=== PATIENT | female | born 1945 | race Caucasian/White ===

== ENCOUNTER 2025-02-05 12:22 | Outpatient (AMB) | payer MEDICARE, SELFPAY ==
--- NOTE | 2025-02-05 12:29 | MHC.OFFVIS ---
Intake Visit Reasons: 6 month MCI Accompanied by: Spouse Allergies No Known Allergies Allergy (Verified 02/05/25 12:29) Medication List - Last Reconciled 02/05/25 by Skye Etienne CNP amlodipine 2.5 mg PO DAILY donepezil 5 mg PO DAILY lisinopril 20 mg PO DAILY memantine 10 mg PO BID HPI Comments Details: She was doing okay. Memory was about the same, may be declining some. Unsteady and balance was off, walking with walker. She had minor fall last week without injury and needed help getting up. She needed some help with dressing. No issues with bathing. Able to feed herself. Mood was okay. She was napping during the day, but sleep was okay at night. She was still drinking alcohol some. Balance is poor. Has had unsteadiness on walking since 2019. She has mild cognitive impairment diagnosed on neuropsych testing in 05/2021. She had a follow up neuropsych test in 12/2021, report not available. She drinks a [place] with 3 ounces of alcohol every night and about a half a beer. She snores at night and sometimes naps in the day. She was in the process of having a polysomnogram but she did not go through this and her feels that she will never tolerate a mask over her face. On 12/24/21 she had an MRI of the brain which showed a moderate degree of cortical atrophy as well as central atrophy and mild to moderate nonspecific microvascular white matter disease. No specific cerebellar abnormality was noted. [facility] Medical History (Updated 02/05/25 @ 12:35 by Skye Etienne CNP) Alcohol abuse Alzheimer disease Ataxia Hypertension MCI (mild cognitive impairment) Review of Systems Const Denies chills, Denies daytime sleepiness, Denies difficulty sleeping, Denies fatigue, Denies fever(s), Denies frequent falls, Denies headache(s), Denies increased appetite, Denies poor appetite, Denies snoring, Denies weakness, Denies weight gain and Denies weight loss Eyes Denies loss of vision ENT Denies vertigo, Denies dizziness, Denies headache(s) and Denies neck pain Card Denies chest pain at rest, Denies chest pain with activity, Denies syncope, Denies leg edema, Denies palpitations, Denies dyspnea and Denies dyspnea on exertion Resp Denies cough, Denies dyspnea, Denies dyspnea on exertion and Denies snoring GI Denies abdominal pain, Denies constipation, Denies heartburn, Denies diarrhea and Denies nausea Denies urinary frequency, Denies urinary incontinence and Denies urinary urgency Musc Reports abnormal gait (balance difficulty), Denies back pain, Denies myalgias, Denies arthralgias, Denies neck pain, Denies numbness and Denies tingling Neuro Reports abnormal gait (balance difficulty), Denies vertigo, Denies dizziness, Denies syncope, Denies frequent falls, Denies headache(s), Denies lack of coordination, Denies loss of vision, Reports memory loss, Denies numbness, Denies Other visual disturbances, Denies restless legs, Denies seizure-like activity, Denies tingling, Denies paresthesias, Denies tremor(s) and Denies weakness Psych Denies anxiety, Denies depression, Denies auditory hallucinations, Reports memory loss and Denies visual hallucinations Endo Denies fatigue and Denies palpitations Physical Exam Const Other: General Appearance:? normal, in no acute distress. Heart:? S1, S2 normal, no murmurs. Lungs:? clear anteriorly and posteriorly. Musculoskeletal:? normal. Extremities:? no edema. Psych:? alert, as below. Neuro Other: Abnormal Neurological Findings:?Truncal ataxia on tandem walking, broad based gait. Walking with walker. MMSE 17/30? Mental Status: alert, as below Cranial Nerves: Pupils are equal, round, and reactive to light. External ocular muscles are intact. Visual alcocer are full, no ptosis. Face is symmetrical, no facial weakness or droop. Facial sensations are normal. Tongue protrudes in midline. Palate elevates symmetrically. Shoulder shrugging is normal Motor Examination: Normal muscle tone, bulk and strength. No atrophy or fasciculations. No drift of the extended upper extremities. DTR 2+. Plantars are flexor. Sensory Exam: Normal light touch, temperature, pinprick, vibration, and joint-position sensations. Rhomberg sign is absent. Gait Exam: As above. Cerebellar Signs: [id number] is okay. Extrapyramidal System: No tremor, rigidity with normal facial expressions. No bradykinesia. No bradyphrenia. Normal arm swing and posture. No propulsion or retropulsion. Speech: Normal. MMSE Level of Consciousness: Alert. Orientation: Knows correct season. Does not know year, month, date, or day. Knows correct state. Does not know city or county. Knows correct location. Does not know floor. Registration: Able to register 3 objects. Attention: Serial 7's performed accurately to 79. Recall: Able to recall 0 out of 3 objects. Language: Normal spontaneous speech, fluency, repetition, naming, comprehension, reading, and writing. Total Score: 17/30. Results Reviewed Results Reviewed: January 14 MRI brain and June 15 neuropsych reports were reviewed 01/13/22 EEG- WNL Assessment & Plan Assessment & Plan (1) Alzheimer disease: Code(s): G30.9 - Alzheimer's disease, unspecified; F02.80 - Dementia in other diseases classified elsewhere, unspecified severity, without behavioral disturbance, psychotic disturbance, mood disturbance, and anxiety Category: Medical Plan: Continue donepezil 5mg 1 tablet daily Continue memantine 10mg 1 tablet twice a day (2) Ataxia: Code(s): R27.0 - Ataxia, unspecified Category: Medical Plan: Continue to use walker. (3) History of alcohol use disorder: Code(s): Z87.898 - Personal history of other specified conditions Category: Medical Plan Unable to tolerate 10mg Donepezil. Coding Level of Care Code Est Pt Level 4 (82895) Diagnoses Alzheimer disease G30.9; F02.80 Ataxia R27.0 History of alcohol use disorder Z87.898
== END 2025-02-05 13:01 | disposition home or self-care (01) ==
LOC: HO.HSM 12:22
PROVIDERS: PCP Internal Medicine; Referring Provider Internal Medicine; Visit Provider Registered Nurse
DX: G30.9 Alzheimer's disease, unspecified (principal); F02.80 Dementia in other diseases classified elsewhere, unspecified severity, without behavioral disturbance, psychotic disturbance, mood disturbance, and anxiety; R27.0 Ataxia, unspecified; Z87.898 Personal history of other specified conditions
CPT/HCPCS: 99214

== ENCOUNTER → 2025-02-05 12:22 | Outpatient (BNVA) | payer MEDICARE, SELFPAY | PROVIDERS: PCP Internal Medicine; Referring Provider Internal Medicine; Visit Provider Registered Nurse | DX: G30.9 Alzheimer's disease, unspecified (principal); F02.80 Dementia in other diseases classified elsewhere, unspecified severity, without behavioral disturbance, psychotic disturbance, mood disturbance, and anxiety; R27.0 Ataxia, unspecified; Z87.898 Personal history of other specified conditions; Z79.899 Other long term (current) drug therapy | CPT/HCPCS: 99212 ==